=== PATIENT | female | born 1935 | race African-American/Black ===

== ENCOUNTER 2016-10-28 19:47 | Inpatient (IN) | payer OTHER ==
[~2016-10-28] VITALS: Ht 165.1 cm; Wt 93.2 kg
--- NOTE | ~2016-10-28 | EKG ---
[address] [place] [address] ELECTROCARDIOGRAM REPORT Name: RONY AMADOR Room #: 441-P ADM IN M.R.#: [id number] Admission: 10/28/16 Attend Phys: Gil Johnson MD Discharge: Date of : 33 Report #: [id number] THIS REPORT FOR: //name// [facility] ED Test Date: 2016-10-28 Test Time: 20:08:28 Pat Name: RONY AMAODR Department: Room: [facility] Gender: F Assembly Repairer: CARA : 1935 Requested By: Carlos Herndon Order Number: [id number] MD: New Zhang Measurements Intervals Gay Rate: 88 P: -23 TX: 157 QRS: 52 QRSD: 84 T: 178 QT: 318 QTc: 385 Interpretive Statements Sinus rhythm Abnormal R-wave progression, early transition Probable LVH with secondary repol abnrm Compared to ECG 09/06/2016 13:22:02 Poor R-wave progression no longer present Myocardial infarct finding no longer present Electronically Signed On 10-29-2016 11:05:04 CDT by New Zhang [email or web address] <ELECTRONICALLY SIGNED> By: New Zhang MD 10/29/16 1105 07 07 New Zhang MD /EPI
--- NOTE | ~2016-10-28 | HC ---
[facility] [place] [address] CONSULTATION Name: RONY AMADOR Room #: 441-P [facility] IN M.R.#: [id number] Admission: 10/28/16 Attend Phys: Gil Johnson MD Discharge: Date of : 33 Report #: [id number] THIS REPORT FOR: //name// CC: Butch Johnson DATE OF SERVICE: 10/29/2016 INDICATION: Dyspnea. HISTORY OF PRESENT ILLNESS: This is a pleasant 81-year-old female presenting with shortness of breath for the past 2 weeks. The patient reports increasing edema and dyspnea over the past several weeks. Has been experiencing chest pains on and off, although not significant. There is no history of fever, chills or diarrhea. She has been compliant with her medications. The patient was previously admitted in August with congestive heart failure and non-ST elevation [place]. The patient is followed by Dr. Miguelito Jose. She has prior history of CABG and multiple stent procedures. It was decided to continue with medical therapy and an invasive approach was not performed. PAST MEDICAL HISTORY: CABG in 1998. Recent echo reveals normal ejection fraction, history of heart failure secondary to diastolic dysfunction. Her last angioplasty was in 2012 with a stent to the distal LAD. History of chronic kidney disease, diabetes mellitus, CVA, COPD. ALLERGIES: Include LISINOPRIL and CONTRAST. MEDICATIONS: Include Ranexa 500 mg twice a day, glipizide, Protonix once a day, aspirin once a day, Plavix 75 mg daily, torsemide 20 mg daily, Symbicort, Ventolin, Bystolic 5 mg and Vytorin once a day. SOCIAL HISTORY: Negative for tobacco use. FAMILY HISTORY: Positive for premature CAD. REVIEW OF SYSTEMS: A full 10-point review of systems performed. Only the pertinent positives and negatives are described in the HPI. PHYSICAL EXAMINATION: VITAL SIGNS: Blood pressure is 150/70, heart rate is 90 beats per minute. GENERAL APPEARANCE: This is an elderly appearing female in no acute respiratory distress. HEAD AND EYES: Normocephalic. Sclerae are anicteric. ENT: Oral mucosa moist. [facility] [address] [address] CONSULTATION Name: RONY AMADOR Room #: 441-P [facility] IN .R.#: [id number] Admission: 10/28/16 Attend Phys: Gil Johnson MD Discharge: Date of : 33 Report #: [id number] LUNGS: Diminished breath sounds bilaterally. CARDIAC: Distant heart sounds, S1, S2 positive, 1/6 systolic murmur. ABDOMEN: Protuberant, soft, nontender. EXTREMITIES: No major joint deformities, bilateral lower extremity edema. ECG reveals sinus rhythm, LVH with repolarization abnormalities. LABORATORY VALUES: Peak troponin is 0.94, sodium is 136, creatinine is 2.2. White count is 9.8, hemoglobin is 9.0. ASSESSMENT: 1. Congestive heart failure, acute on chronic diastolic dysfunction. Continue with IV Lasix at this time. 2. Coronary artery disease/coronary artery bypass graft/percutaneous coronary intervention, positive troponins consistent with non-ST elevation myocardial infarction. Probably triggered by fluid overload/congestive heart failure. The plan for now is to continue with medical therapy. We will defer to Dr. Jose regarding cardiac catheterization. 3. Chronic obstructive pulmonary disease, continue with inhalers. 4. Chronic kidney disease, follow creatinine level. 5. Diabetes mellitus. 6. Cerebrovascular accident. Thank you for allowing me to participate in the care of your patient. <ELECTRONICALLY SIGNED> By: New Zhang MD 10/29/16 1722 0901 1319 New Zhang MD /nt
[~2016-10-28 19:47] MED LIST: ALBUTEROL2.5 MG/31 INH; ALDACTONE; ALDACTONE25 MG PO; ALLEGRA180 MG PO; ASPIRIN EC81 M1; AVAPRO 150 MG150 M1 PO; BYSTOLIC 5 MG5 M1 PO; BYSTOLIC2.5 MG; CLOPIDOGREL; COLACE100 MG PO; COLCHICINE0.6 MG PO; DEMADEX20 MG PO; DOXYCYCLINE 10100 MG PO; FUROSEMIDE; GABAPENTIN100 MG PO; GILPIZIDE; GLUCOTROL XL5 MG PO; GLUCOTROL5 MG PO; LASIX 20 MG TAB20 MG PO; LEVAQUIN 500 M500 M3 PO; LEXAPRO; MERIDIA; METOPROLOL SUCC25 M1 PO; NICOTINE TRANSD21 M1 TOP; NITRO-DUR 0.1M0.1 M1 TD; NORCO 5-325 TA1 EACH PO; PLAVIX 75 MG TA75 MG PO; PREDNISONE 5 MG5 M1 PO; PROTONIX40 M2 PO; PROVENTIL; RANEXA500 MG PO; SYMBICORT160 MCG/4. INH; TRADJENTA5 MG PO; TRICOR; VENTOLIN HFA INH8 GM IH; VIIBRYD20 MG; VYTORIN; VYTORIN 10-801 EACH PO; [UNRECOGNIZED DRUG - OTHER] PO
[2016-10-28 19:50] VITALS: BP 141/65
[2016-10-28] MEDS ORDERED: NITRO-DUR 10 C0.2 M1 TRANSDERM (19:57)
[2016-10-28] MEDS ORDERED: BYSTOLIC 5 MG5 M1 PO ×2 (19:58→22:42)
[2016-10-28] MEDS ORDERED: GLIPIZIDE XL5 MG PO (19:58)
[2016-10-28] MEDS ORDERED: PANTOPRAZOLE SO40 M1 PO (19:58)
[2016-10-28] MEDS ORDERED: VYTORIN 10-201 EACH PO ×2 (19:58→22:43)
[2016-10-28 20:44] LABS: ABSOLUTE NEUTROPHILS 7.5 thou/uL (1.4-8.2); BASOPHILS 0.6 % (0.0-2.0); EOSINOPHILS 0.2 % (0.0-3.0); HEMATOCRIT 27.5 % (37.0-47.0); LYMPHOCYTES 11.4 % (24.0-44.0); MCHC 32.8 g/dL (28.0-37.0); MCV 82.4 fL (80.0-100.0); MONOCYTES 11.7 % (1.0-8.0); PLATELET COUNT 179 thou/uL (150-400); POLYS 76.1 % (36.0-66.0); RBC 3.34 mil/uL (4.20-5.00); RDW 16.3 % (10.5-14.5); WBC 9.8 thou/uL (4.0-11.0)
[2016-10-28 20:45] LABS: MANUAL DIFF NO
[2016-10-28 21:05] LABS: CALCIUM 8.6 mg/dL (8.5-10.1); CREATININE 2.2 mg/dL (0.6-1.0); POTASSIUM 4.8 mmol/L (3.5-5.1)
[2016-10-28 21:07] LABS: TROPONIN-I 0.88 ng/mL (<0.04-0.07)
[2016-10-28 21:50] VITALS: BP 138/62
[2016-10-28 22:07] VITALS: BP 110/59
[2016-10-28] MEDS ORDERED: NITRO-DUR 10 C0.2 MG TD (22:33)
[2016-10-28] MEDS ORDERED: TOPROL XL25 MG PO (22:35)
[2016-10-29 00:10] VITALS: BP 148/57
[2016-10-29 03:41] LABS: CREATININE 2.2 mg/dL (0.6-1.0); MAGNESIUM 1.2 mg/dL (1.8-2.4); POTASSIUM 5.4 mmol/L (3.5-5.1)
[2016-10-29 04:08] LABS: TROPONIN-I 0.94 ng/mL (<0.04-0.07)
[2016-10-29 04:54] VITALS: BP 184/54
[2016-10-29 07:22] VITALS: BP 152/51
[2016-10-29 10:46] VITALS: BP 152/51
[2016-10-29 11:20] VITALS: BP 125/46
[2016-10-30 03:32] LABS: HEMATOCRIT 23.8 % (37.0-47.0); HEMOGLOBIN 7.7 gm/dL (12.0-15.0); MCH 26.7 pg (26.0-34.0); MCHC 32.4 g/dL (28.0-37.0); MCV 82.4 fL (80.0-100.0); RBC 2.89 mil/uL (4.20-5.00); RDW 16.2 % (10.5-14.5); WBC 8.8 thou/uL (4.0-11.0)
[2016-10-30 03:41] LABS: CALCIUM 7.9 mg/dL (8.5-10.1); CREATININE 2.5 mg/dL (0.6-1.0); POTASSIUM 4.5 mmol/L (3.5-5.1)
[2016-10-30 06:19] VITALS: BP 144/50
[2016-10-30 08:17] VITALS: BP 138/43
[2016-10-30 12:26] VITALS: BP 100/30
[2016-10-30 16:52] VITALS: BP 121/53
[2016-10-30 20:00] VITALS: BP 113/41
[2016-10-31 04:55] VITALS: BP 139/36
[2016-10-31 06:00] LABS: CREATININE 2.9 mg/dL (0.6-1.0); POTASSIUM 4.2 mmol/L (3.5-5.1)
[2016-10-31 08:19] VITALS: BP 114/31
[2016-10-31 11:39] VITALS: BP 116/35
[2016-10-31 16:18] VITALS: BP 118/34
[2016-10-31 19:08] VITALS: BP 130/39
[2016-11-01 03:50] VITALS: BP 135/40
[2016-11-01 05:53] LABS: HEMATOCRIT 25.1 % (37.0-47.0); HEMOGLOBIN 8.2 gm/dL (12.0-15.0); MCH 26.7 pg (26.0-34.0); MCHC 32.6 g/dL (28.0-37.0); MCV 81.8 fL (80.0-100.0); RBC 3.07 mil/uL (4.20-5.00); RDW 15.9 % (10.5-14.5); WBC 5.4 thou/uL (4.0-11.0)
[2016-11-01 06:09] LABS: CALCIUM 8.1 mg/dL (8.5-10.1); CREATININE 2.8 mg/dL (0.6-1.0); POTASSIUM 4.3 mmol/L (3.5-5.1)
[2016-11-01 07:15] VITALS: BP 113/61
[2016-11-01] MEDS ORDERED: TORSEMIDE20 MG PO (13:08)
[2016-11-01 14:05] VITALS: BP 152/51
== END 2016-11-01 16:30 | disposition home health service (06) | DRG 280 ==
LOC: ER 19:47 → EROBS 21:26 → 4S 21:26
PROVIDERS: Hospitalist; Internal Medicine Cardiovascular Disease; Nurse Practitioner
DX: I21.4 Non-ST elevation (NSTEMI) myocardial infarction (principal); I50.33 Acute on chronic diastolic (congestive) heart failure; J96.01 Acute respiratory failure with hypoxia; I13.0 Hypertensive heart and chronic kidney disease with heart failure and stage 1 through stage 4 chronic kidney disease, or unspecified chronic kidney disease; I69.351 Hemiplegia and hemiparesis following cerebral infarction affecting right dominant side; I25.10 Atherosclerotic heart disease of native coronary artery without angina pectoris; K21.9 Gastro-esophageal reflux disease without esophagitis; E78.5 Hyperlipidemia, unspecified; I73.9 Peripheral vascular disease, unspecified; E11.22 Type 2 diabetes mellitus with diabetic chronic kidney disease; J44.9 Chronic obstructive pulmonary disease, unspecified; N18.3 Chronic kidney disease, stage 3 (moderate); F32.9 Major depressive disorder, single episode, unspecified; E11.40 Type 2 diabetes mellitus with diabetic neuropathy, unspecified; Z95.5 Presence of coronary angioplasty implant and graft; Z79.82 Long term (current) use of aspirin; Z79.899 Other long term (current) drug therapy; Z95.1 Presence of aortocoronary bypass graft; Z90.49 Acquired absence of other specified parts of digestive tract; Z88.8 Allergy status to other drugs, medicaments and biological substances; Z91.041 Radiographic dye allergy status; Z82.49 Family history of ischemic heart disease and other diseases of the circulatory system
CPT/HCPCS: 10100

== ENCOUNTER → 2016-11-07 | Outpatient (CLI) | payer OTHER ==
[~2016-11-07] MED LIST changes: +GLIPIZIDE XL5 MG PO; +NITRO-DUR 10 C0.2 M1 TRANSDERM; +NITRO-DUR 10 C0.2 MG TD; +PANTOPRAZOLE SO40 M1 PO; +TOPROL XL25 MG PO; +TORSEMIDE20 MG PO; +VYTORIN 10-201 EACH PO
== END ==
LOC: RAD 09:44
DX: Z12.31 Encounter for screening mammogram for malignant neoplasm of breast (principal)